=== PATIENT | female | born 2000 | race Caucasian/White ===

== ENCOUNTER 2021-06-10 15:55 | Emergency (ER) | payer OTHER ==
[~2021-06-10] VITALS: Ht 167.6 cm; Wt 76.0 kg
[2021-06-10] MEDS ORDERED: MIRE1IUD IU (16:16)
--- OUTSIDE RECORDS SUMMARY | 2021-06-11 06:04 | CCD | Continuity of Care Document ---
Author Author Elaine TRUONG MD Organization Unknown Address [address] [place] [id number] Phone [phone] Care Team Providers Care Consumer Safety Officer Name Role Phone Rasheed Peng AUTM [phone] Problems Description No Information Available Social History Type Date Description Comments Sex Unknown ETOH Use 1-2 A Month Recreational Drug Use Denies Drug Use Tobacco Use Start: Unknown Non Smoker Allergies and adverse reactions Active Allergies Criticality Reaction | Severity Comments Date Doxycycline Unable to assess criticality 06/05/2021 Medications Active Medications SIG Qnty Indications Ordering Provide r Date Multi Vitamin Daily Tablets Unknown Vitamin D 50mcg (1999 Ut) Capsules Unknown Immunizations Description No Information Available Vital Signs Date Vital Result Comment 06/05/2021 9:22am Height 66 inches 5'6" Weight 160.00 lb BMI (Body Mass Index) 25.8 kg/m2 [place] Body Weight 130 lb Weight 72.576 kg BSA (Body Surface Area) 1.82 m2 Results Description No Information Available Procedures Date Code Description Status 06/05/2021 [address]4433 Office/Outpatient New Moderate M DM 45-59 Minutes Completed Medical Devices Description No Information Available Encounters Type Date Location Provider Dx Diagnosis Office Visit 06/05/2021 9:20a [facility] Yousif Truong MD J35.01 Chronic tonsillitis Assessments Date Code Description Provider 06/05/2021 J35.01 Chronic tonsillitis Yousif Truong MD Plan of Treatment No Information Available Functional Status Description No Information Available Mental Status Description No Information Available Referrals Refer to Reason for Referral Status Appt Date Byron Burns M.D. 21 year old adf with recurre nt tonsillitis initially treated for strep after a positive rapid strep on november 27 2020. Scheduled 06/05/[address] [phone]
--- OUTSIDE RECORDS SUMMARY | 2021-06-11 06:04 | CCD ---
Author Author [facility] Organization [facility] Address Unknown Phone Unavailable Care Team Providers Care Environmental Protection Geologist Name Role Phone Yousif Truong MD Unavailable Unavailable Celoron, Yousif MELCHOR Unavailable Unavailable Celoron, Yousif MELCHOR Unavailable Unavailable Celoron, Yousif MELCHOR Unavailable Unavailable Celoron, Yousif MELCHOR Unavailable Unavailable Celoron, Yousif MELCHOR Unavailable Unavailable Celoron, Yousif MELCHOR Unavailable Unavailable Celoron, Yousif MELCHOR Unavailable Unavailable Celoron, Yousif MELCHOR Unavailable Unavailable Celoron, Yousif MELCHOR Unavailable Unavailable Celoron, Yousif MELCHOR Unavailable Unavailable Celoron, Yousif MELCHOR Unavailable Unavailable Celoron, Yousif MELCHOR Unavailable Unavailable Celoron, Yousif MELCHOR Unavailable Unavailable Celoron, Yousif MELCHOR Unavailable Unavailable Celoron, Yousif MD Unavailable Unavailable Celoron, Yousif MD Unavailable Unavailable Celoron, Yousif MD Unavailable Unavailable Celoron, Yousif MD Unavailable Unavailable Celoron, Yousif MD Unavailable Unavailable Celoron, Yousif MD Unavailable Unavailable Celoron, Yousif MD Unavailable Unavailable Celoron, Yousif MD Unavailable Unavailable Celoron, Yousif MD Unavailable Unavailable Celoron, Yousif MD Unavailable Unavailable Celoron, Yousif MD Unavailable Unavailable Celoron, Yousif MD Unavailable Unavailable Celoron, Yousif MELCHOR Unavailable Unavailable Celoron, Yousif MD Unavailable Unavailable Celoron, Yousif MELCHOR Unavailable Unavailable Celoron, Yousif MELCHOR Unavailable Unavailable Celoron, Yousif MELCHOR Unavailable Unavailable Re-disclosure Warning The records that you are about to access may contain information from federally-assisted alcohol or drug abuse programs. If such information is present, then the following federally mandated warning applies: This information has been disclosed to you from records protected by federal confidentiality rules (42 CFR part 2). The federal rules prohibit you from making any further disclosure of this information unless further disclosure is expressly permitted by the written consent of the person to whom it pertains or as otherwise permitted by 42 CFR part 2. A general authorization for the release of medical or other information is NOT sufficient for this purpose. The Federal rules restrict any use of the information to criminally investigate or prosecute any alcohol or drug abuse patient.The records that you are about to access may contain highly sensitive health information, the redisclosure of which is protected by Article 27-F of the [facility] Public Health law. If you continue you may have access to information: Regarding HIV / AIDS; Provided by facilities licensed or operated by the [facility] Office of Mental Health; or Provided by the [facility] Office for People With Developmental Disabilities. If such information is present, then the following [facility] mandated warning applies: This information has been disclosed to you from confidential records which are protected by state law. State law prohibits you from making any further disclosure of this information without the specific written consent of the person to whom it pertains, or as otherwise permitted by law. Any unauthorized further disclosure in violation of state law may result in a fine or fci sentence or both. A general authorization for the release of medical or other information is NOT sufficient authorization for further disc losure. Encounters Encounter Providers Location Date Indications Data Source(s ) Outpatient Attender: Yousif Freeman/Alexi/Manuel/Gladys aguilar 06/05/2021 08:20:00 AM EST [facility] Immunizations Vaccine Date Status Description Data Source(s) COVID-19 VACCINE Pfizer 08/09/2020 12:00:00 AM EST completed [facility] Vaccine Series Complete: NOThis Data was Submitted to [facility]. Medications No Information Insurance Providers Payer name Policy type / Coverage type Policy ID Covered libertarian ID Covered libertarian's relationship to gillil[place] Policy [place] Plan Information [employer] [id number] SP [id number] [employer] - O/P [id number] 18 [id number] [facility] [place] [id number] 18 [id number] Problems, Conditions, and Diagnoses No Information Surgeries/Procedures Procedure Description Date Indications Data Source(s) OFFICE OUTPATIENT NEW 45 MINUTES 06/05/2021 12:00:00 A M EST [facility] ([facility], ) Results ID Date Data Source [id number] 10/22/2020 01:38:00 PM EDT [facility] Name Value Range Interpretation Code Description Data Deandra rce(s) Supporting Document(s) SARS coronavirus 2 RNA Not Detected [facility] [place] This lab was ordered by [facility] and reported by [facility]. Procedure Social History No Information Vital Signs ID Date Data Source UNK Name Value Range Interpretation Code Description Data Source(s) Body height 66 [in_i] 66 [in_i] [facility]) 5'6" Body weight 160.00 [lb_av] 160.00 [lb_av] [facility] Body mass index (BMI) [Ratio] 25.8 kg/m2 25.8 k g/m2 [facility] ([facility]) [place] body weight 130 [lb_av] 130 [lb_av] [facility] Body weight 72.576 kg 72.576 kg [facility] ([facility]) Body surface area Derived from formula 1.82 m2 1.82 m2 [facility] ([facility])
--- OUTSIDE RECORDS SUMMARY | 2021-06-11 06:04 | CCD | Continuity of Care Document ---
Author Author Elaine TRUONG MD Organization Unknown Address [address] [address] Phone [phone] Care Team Providers Care Instrumentation And Control Technician Name Role Phone Rasheed Peng AUTM [phone] Problems Description No Information Available Social History [...] lb BMI (Body Mass Index) 25.8 kg/m2 [place] Body Weight 130 lb Weight 72.576 kg BSA (Body Surface Area) 1.82 m2 Results Description No Information Available Procedures Description No Information Available Medical Devices Description No Information Available Encounters Description No Information Available Assessments Date Code Description Provider 06/05/2021 J35.01 [...] on november 27 2020. Scheduled 06/05/[address] [phone]
--- NOTE | 2021-06-11 06:49 | REPVR ---
PROCEDURE INFORMATION: Exam: MRA Neck Without Contrast Exam date and time: 06/11/2021 5:34 AM Age: 21 years old Clinical indication: Other: New onset bilateral temporal hemianopsia TECHNIQUE: Imaging protocol: Magnetic resonance angiography of the neck without contrast. COMPARISON: No relevant prior studies available. FINDINGS: Right common carotid artery: No stenosis. No dissection or occlusion. Right internal carotid artery: No stenosis of the extracranial segment. No dissection or occlusion. Right external carotid artery: No stenosis. No dissection or occlusion of the origin. Right vertebral artery: No stenosis. No dissection or occlusion. Left common carotid artery: No stenosis. No dissection or occlusion. Left internal carotid artery: No stenosis of the extracranial segment. No dissection or occlusion. Left external carotid artery: No stenosis. No dissection or occlusion of the origin. Left vertebral artery: No stenosis. No dissection or occlusion. IMPRESSION: No stenosis or occlusion. REFERENCES: NASCET CRITERIA. The degree of internal carotid artery stenosis is based on NASCET criteria. Normal is no stenosis. Mild is less than 50% stenosis. Moderate is 50-69% stenosis. Severe is 70% to 99% stenosis. Total occlusion is no detectable patent lumen. Electronically signed by: Angie Bar On 06/11/2021 06:49:18 AM
--- NOTE | 2021-06-11 06:51 | REPVR ---
PROCEDURE INFORMATION: Exam: MRA Head Without Contrast; Arteriography Exam date and time: 06/11/2021 5:34 AM Age: 21 years old Clinical indication: Other: New onset bilateral temporal hemianopsia TECHNIQUE: Imaging protocol: Magnetic resonance angiography head without contrast. Exam focused on the arteries. COMPARISON: No relevant prior studies available. FINDINGS: ANTERIOR CIRCULATION: Right internal carotid artery: Intracranial segment is patent with no significant stenosis. No aneurysm. Right middle cerebral artery: No occlusion or significant stenosis. No aneurysm. Right anterior cerebral artery: No occlusion or significant stenosis. No aneurysm. Left internal carotid artery: Intracranial segment is patent with no significant stenosis. No aneurysm. Left middle cerebral artery: No occlusion or significant stenosis. No aneurysm. Left anterior cerebral artery: No occlusion or significant stenosis. No aneurysm. POSTERIOR CIRCULATION: Right vertebral artery: No occlusion or significant stenosis. No aneurysm. Left vertebral artery: No occlusion or significant stenosis. No aneurysm. Basilar artery: No occlusion or significant stenosis. No aneurysm. Right posterior cerebral artery: No occlusion or significant stenosis. No aneurysm. Left posterior cerebral artery: No occlusion or significant stenosis. No aneurysm. IMPRESSION: No stenosis, occlusion, or aneurysm. Electronically signed by: Angie Bar On 06/11/2021 06:50:56 AM
[2021-06-11] MEDS ORDERED: NS 1,000 ML IV ONE (07:55)
--- NOTE | 2021-06-11 09:06 | REPVR ---
PROCEDURE INFORMATION: Exam: MR Head Without Contrast Exam date and time: 06/11/2021 8:50 AM Age: 21 years old Clinical indication: Bitemporal hemianopsia. TECHNIQUE: Imaging protocol: MR of the head without contrast. COMPARISON: MRA BRAIN W/O CONTRAST 06/11/2021 4:54 AM FINDINGS: Brain: Normal. No acute infarct. No hemorrhage. No significant white matter disease. No edema. Cerebral ventricles: Normal. No ventriculomegaly. Bones/joints: Unremarkable. Paranasal sinuses: There is mild sinus disease. Mastoid air cells: Normal as visualized. No mastoid effusion. Orbital cavity: Unremarkable. Soft tissues: Unremarkable. IMPRESSION: No acute findings. Electronically signed by: Servando Ritter On 06/11/2021 09:05:29 AM
[2021-06-11 09:21] VITALS: BP 121/64
--- NOTE | 2021-06-12 05:44 | ECGEPIP ---
[facility] - ED Test Date: 2021-06-11 Pat Name: TANESHA RUTH Department: Room: - Gender: Female Industrial Spraypainter: : 2000 Requested By: KEATON Lazaro Order Number: [id number] Reading MD: Marcus Martinez Measurements Intervals Erwin Rate: 64 P: 38 DC: 144 QRS: 65 QRSD: 96 T: 68 QT: 406 QTc: 418 Interpretive Statements Normal sinus rhythm with sinus arrhythmia BENIGN EARLY REPOLARIZATION NO PRIORS FOR COMPARISON Electronically Signed on 06-12-2021 5:44:00 EST by Marcus Martinez
== END 2021-06-11 09:28 | disposition home or self-care (01) ==
LOC: M ED 15:55
DX: H53.9 Unspecified visual disturbance (principal); Z88.1 Allergy status to other antibiotic agents

== ENCOUNTER 2021-07-10 06:40 | Day surgery (SDC) | payer OTHER ==
[~2021-07-10] VITALS: Ht 166.4 cm; Wt 73.0 kg
[~2021-07-10 06:40] MED LIST: MIRE1IUD IU; VITA100054 PO
[2021-07-10] MEDS ORDERED: LR 1,000 ML IV ONE (07:25)
[2021-07-10] MEDS ORDERED: ROCURONIUM BROMIDE 50 MG/5 ML VIAL As Ordered ONE (07:53)
[2021-07-10] MEDS ORDERED: LIDOCAINE 2% 100MG/5ML SDV (FOR ANES.) As Ordered ONE (07:53)
[2021-07-10] MEDS ORDERED: MIDAZOLAM INJ 2MG/2ML VIAL (J2250 PER 1MG) As Ordered ONE (07:53)
[2021-07-10] MEDS ORDERED: fentaNYL 250 MCG/5 ML INJECTION (J3010) As Ordered ONE (07:53)
[2021-07-10] MEDS ORDERED: propofoL 200 MG/20 ML VIAL As Ordered ONE (07:53)
[2021-07-10] MEDS ORDERED: LIDOCAINE W/EPINEPHRINE 1% 20ML VIAL As Ordered ONE (08:16)
[2021-07-10] MEDS ORDERED: BUPIVACAINE/EPIN 0.5% 30 ML VIAL As Ordered ONE (08:16)
[2021-07-10] MEDS ORDERED: ACETAMINOPHEN 1000MG 100ML IV BTL (OFIRMEV) (J0131 PER 10MG) As Ordered ONE (08:35)
[2021-07-10] MEDS ORDERED: KETOROLAC 60MG 2ML VIAL As Ordered ONE (08:35)
[2021-07-10] MEDS ORDERED: ONDANSETRON 4MG/2ML VIAL As Ordered ONE (08:35)
[2021-07-10] MEDS ORDERED: dexameTHASONE 4 MG/ML 1ML VIAL (J1100 PER 1MG) As Ordered ONE (08:35)
[2021-07-10] MEDS ORDERED: SUGAMMADEX SODIUM 500 MG/5 ML VIAL (BRIDION) As Ordered ONE (08:46)
[2021-07-10] MEDS ORDERED: MEPERIDINE INJ 25 MG/ML VIAL (J2175) As Ordered ONE (09:20)
[2021-07-10] MEDS ORDERED: LR 1,000 ML IV SCH ×2 (09:40)
[2021-07-10] MEDS ORDERED: MEPERIDINE INJ 25 MG/ML VIAL (J2175) IV ONE (09:40)
[2021-07-10] MEDS ORDERED: ONDANSETRON 4MG/2ML VIAL IV PRN (09:40)
[2021-07-10] MEDS ORDERED: fentaNYL 100 MCG/2 ML INJECTION (J3010) IV PRN (09:40)
[2021-07-10] MEDS ORDERED: oxyCODONE 5MG TAB PO PRN (09:40)
[2021-07-10] MEDS ORDERED: HYDROMORPHONE HCL 0.5 MG/ 0.5 ML SYRINGE (J1170 PER 1) IV PRN (09:40)
[2021-07-10] MEDS ORDERED: NORCO, ANEXSIA 5/325MG TABLET (HYDROcodone/ACETAMINOPHEN) PO PRN (09:40)
[2021-07-10 09:55] VITALS: BP 122/63
== END 2021-07-10 10:19 | disposition home or self-care (01) ==
LOC: M SDC 06:40
PROVIDERS: ATTEND Otolaryngology
DX: J35.01 Chronic tonsillitis (principal); D64.9 Anemia, unspecified; E28.2 Polycystic ovarian syndrome; Z79.899 Other long term (current) drug therapy; Z88.1 Allergy status to other antibiotic agents
CPT/HCPCS: 42826; 81025; 88302; J0131; J1100; J1885; J2175; J2250; J2405; J3010